=== PATIENT | male | born 1970 | race Caucasian/White ===

== ENCOUNTER → 2016-10-11 | Day surgery (SDC) | payer OTHER ==
[~2016-10-11] MED LIST: BUPIVACAINE HCL PF 0.75% 30 ML VIAL ONE; EPINEPHrine HCL (1:1000) 30 MG/30 ML VIAL ONE; LACTATED RINGER'S 1000 ML INJ 1,000 ML ONE; LIDOCAINE 1.5%/EPINEPHrine 1:200,000 PF SOLN 30 ML AMP ONE; MIDAZOLAM HCL 5 MG/ML VIAL (1 ML) ONE; ONDANSETRON HCL 4 MG/2 ML VIAL IV PUSH ONE; PROPOFOL 200 MG/20 ML AMP IV ONE; ceFAZolin INJ 1,000 MG VIAL ONE
--- NOTE | 2016-10-12 07:18 | MP ---
cc: AWAIS MORAN DATE OF SURGERY 10/11/2016 PREOPERATIVE DIAGNOSIS Right shoulder moderate-sized rotator cuff tear with impingement. POSTOPERATIVE DIAGNOSIS Right shoulder moderate-sized rotator cuff tear with impingement. SURGEON Awais Moran MD TUBE [employer]ER FENG Sandoval The surgical procedure was assisted by my Advanced Registered Nurse Practitioner. My WOODWORKING MACHINE OFFBEARER presence was necessary throughout this case for the manipulation and positioning of the surgical extremity. My WOODWORKING MACHINE OFFBEARER was assisting me throughout the duration of this procedure. The skill set of an Advance Registered Nurse Practitioner was medically necessary to complete this procedure. During the surgical case, the results technician was working at the back table and the Advance Registered Nurse Practitioner was directly assisting me. PROCEDURE Right shoulder arthroscopic rotator cuff repair with subacromial decompression and partial acromioplasty. ESTIMATED BLOOD LOSS Minimal ANESTHESIA Interscalene block and general PROCEDURE The patient had interscalene block performed. He was then brought back to the operative theater. General anesthesia was administered. He was placed into a lateral decubitus position with an axillary roll and a well-padded down leg. The right upper extremity was placed into in-line traction of 12 pounds. The right upper she was prepped and draped in the usual sterile fashion. We started with a standard posterior portal for diagnostic arthroscopy. 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 This was resected later in the case, otherwise the glenohumeral joint was fairly remarkable without significant chondromalacia. No loose bodies in the axillary pouch was noted. There was moderate to severe synovitis at the superior labrum on the superior surface of the biceps anchor point. The biceps tendon was unremarkable. No significant labral tear was noted. There was a moderate-sized rotator cuff tear which essentially was adhesed to the undersurface of the acromion. We placed the arthroscope in the subacromial space and created a lateral portal, performed a bursectomy because there was at least moderate if not severe bursitis. This helped reduce the attachment to the acromion from the rotator cuff and the inflamed bursa. We found that there was a small moderate sized bone spur which needed to be resected with an oscillating and forward shaver. This then gave us excellent visualization of the cuff which encompassed the entire supraspinatus tendon and part of the infraspinatus tendon. It was retracted to about the edge of the articular cartilage. We then were able to anatomically reduced the tear back to the footprint. We prepared the footprint with an oscillating shaver and also a rasp. We decided to move forward with the repair using a highly modified Arthrex speed bridge. We used two medial swivel lock anchors. On these anchors, we used both of the individual FiberWires that were in them. On the posterior medial ankle, we threw a horizontal stitch with the FiberWire into the most posterior portion of the torn cuff and on the anterior anchor, we threw a horizontal mattress stitch into the most anterior part of the anchor that was torn. We then had the two individual fiber tapes from each of the anchors and these were passed into the central anterior and central posterior aspect of the rotator cuff. We arthroscopically tied using standard knot tying techniques the horizontal mattress stitches both anteriorly and posteriorly. We then cut the FiberTape was crisscrossed them in the standard Speed Bridge fashion. We then took one limb from the posterior horizontal mattress stitch and brought it out towards the front and then we took one limb from the anterior horizontal mattress stitch and brought it out towards the back so that we crisscrossed these sutures as well. We then took all of these limbs and then attached them laterally using another two BioComposite swivel locks. This gave excellent fixation. There was one small dog ear towards the posterior aspect which was grabbed with a FiberLink and then brought lateral using a BioComposite PushLock. This created anatomic reduction of the entire rotator cuff. We took multiple arthroscopic pictures of this. Thus, our portals were closed with 2-0 Vicryl followed by a 3-0 nylon. Dressings were applied. Postop plan is to follow standard rotator cuff repair protocol. MD RADHIKA [place]/BARBARA /2:36 PM /7:09 AM
== END | disposition home or self-care (01) ==
LOC: ESDC 11:08
PROVIDERS: ATTEND Orthopaedic Surgery
DX: M75.111 Incomplete rotator cuff tear or rupture of right shoulder, not specified as traumatic (principal); M75.41 Impingement syndrome of right shoulder; E11.9 Type 2 diabetes mellitus without complications
CPT/HCPCS: 29826; 29827; 64417; 82948; C1713; J0171; J0690; J2250; J2405; J7120